=== PATIENT | female | born 1965 | race Caucasian/White ===

== ENCOUNTER 2018-01-29 23:44 | Emergency (ER) | payer BC ==
[2018-01-30] MEDS ORDERED: Morphine 4 MG/ML VIAL ONE (00:24)
[2018-01-30] MEDS ORDERED: Ondansetron PF 4 MG/2 ML Vial ONE (00:37)
[2018-01-30 00:39] LABS: Bilirubin Negative (Negative); Blood, Urine Large (Negative); Clarity CLOUDY (Clear); Glucose, Urine (Dipstick) Negative (Negative); Leukocyte Negative (Negative); Nitrite Negative (Negative); Protein, Urine (Dipstick) 100 mg/dL (Neg-Trace); Specific Gravity, Urine 1.026 (1.002-1.036); Urobilinogen 0.2 mg/dL (0.2-1.0); pH, Urine 5.5 (5.0-9.0)
[2018-01-30 00:42] LABS: Bacteria/HPF Rare-Few HPF (None Seen); Pathc Cast-AUWi Flag 2.47 (0-2.49)
[2018-01-30 00:52] LABS: Hyaline Casts/LPF NONE SEEN LPF (0-3 Hyaline); Renal Epithelial None Seen HPF (0-3); Transitional Epithelial NONE SEEN HPF (0-3)
[2018-01-30 00:56] LABS: #Lymphocytes 0.7 thou/uL (1.20-3.40); #Monocytes 0.3 thou/uL (0.11-0.59); #Neutrophils 6.5 thou/uL (1.40-6.50); %Basophils 0.3 % (0.0-1.0); %Eosinophils 0.1 % (0.0-10.0); %Lymphocytes 8.8 % (21.0-51.0); %Monocytes 3.4 % (0.0-10.0); %Neutrophils 87.4 % (42.0-75.0); Hemoglobin 15.3 g/dL (12.0-16.0); Mean Corpuscular Hemoglobin 30.9 pg (27.0-31.0); Mean Corpuscular Volume 90.8 fL (78.0-98.0); Platelet Count 218 thou/uL (130-400); RBC Distribution Width 11.1 % (11.5-14.5); Red Blood Cell (RBC) Count 4.95 mill/uL (4.20-5.40); White Blood Cell (WBC) Count 7.5 thou/uL (4.8-10.8)
[2018-01-30 01:16] LABS: ALT (SGPT) 10 U/L (8-55); AST (SGOT) 27 U/L (5-34); Albumin 4.5 g/dL (3.5-5.0); Alkaline Phosphatase 55 U/L (40-150); Anion Gap 17 mmol/L (10-20); BUN (Urea Nitrogen) 13 mg/dL (9.8-20.1); Bilirubin, Total 0.8 mg/dL (0.2-1.2); Calc. Creatinine Clearance 0 mL/min (70-130); Calcium 9.8 mg/dL (7.8-10.44); Carbon Dioxide 21 mmol/L (22-29); Chloride 102 mmol/L (98-107); Estimated GFR-MDRD 75; Globulin 3.2 g/dL (2.4-3.5); Glucose 133 mg/dL (70-105); Lipase 8 U/L (8-78); Potassium 4.2 mmol/L (3.5-5.1); Protein, Total 7.7 g/dL (6.0-8.3); Sodium 136 mmol/L (136-145)
--- NOTE | 2018-01-30 09:25 | CT ---
PRELIMINARY REPORT/[facility]/EMERGENTY AFTER-HOURS PROCEDURE CT Abdomen and Pelvis With Intravenous Contrast EXAM DATE/TIME: 01/30/2018 1:49 AM CLINICAL HISTORY: 52 years old, female; Pain; Abdominal pain; Generalized; Patient HX: Iv contrast only per ordering do c; F52 presents to the ed C/O abdominal pain that started today at 12p before eating. PT. Reports jaren n is intermittent. PT. Reports n/v about 1 hour ago stating that it improved her symptoms. PT. Reports having similar symptoms in the past with HX of partial bowel obstructions. PT. Reports having a ruptured appendix surgery and 2 bowel obstruction surgeries TECHNIQUE: Axial computed tomography images of the abdomen and pelvis with intravenous contrast. Coronal reformatted images were created and reviewed. COMPARISON: No relevant prior studies available. FINDINGS: Lower thorax: There is subpleural atelectasis of the dependent portions of the lungs. ABDOMEN: Liver: There is a small region of focal fatty infiltration adjacent to the falciform ligament. Gallbladder and bile ducts: The gallbladder is normal. There is no evidence of biliary ductal dilatio n. Pancreas: The pancreas appears normal. No ductal dilatation. Spleen: The spleen is normal. Adrenals: The adrenal glands are normal. Kidneys and ureters: The kidneys appear normal. No hydronephrosis. Stomach and bowel: The stomach is normal. The duodenum is unremarkable. There is fluid filling the sm all and large bowel with moderate colonic constipation. Appendix: No appendix is specifically identified. PELVIS: Bladder: The bladder is normal. Reproductive: The uterus is normal. ABDOMEN and PELVIS: Intraperitoneal space: There is tracer upper quadrant ascites Bones/joints: No acute fracture. No dislocation. Soft tissues: Unremarkable. Vasculature: Normal. No abdominal aortic aneurysm. Lymph nodes: Normal. No enlarged lymph nodes. IMPRESSION: There is fluid filling the small and large bowel with moderate colonic constipation. Correlate clinic ally for enteritis. Thank you for allowing us to participate in the care of your patient. Dictated and Authenticated by: Myke Tomas MD 01/30/2018 2:05 AM Central Time ([place] & [place]) FINAL REPORT CT ABDOMEN AND PELVIS WITH IV CONTRAST: DATE: 01/30/2018. TIME: Performed on emergency basis at 0152 hours. HISTORY: Abdominal pain. Nausea and vomiting. FINDINGS: Agree with the preliminary report by Dr. Tomas from [facility]. Fluid distends the small bow el with significant fluid throughout the colon. Some decompressed small bowel is apparent within the right mid abdomen. The amount of fluid within the colon, however, argues against a significant obst ruction. An intermittent distal small bowel obstruction could give this appearance. Alternatively, significant enteritis could have this appearance. No evidence of bowel perforation. POS: [facility]
[2018-01-30] MEDS ORDERED: ISOVUE-370 76%-LOCM 1 ML ONE (10:02)
== END 2018-01-30 03:00 | disposition home or self-care (01) ==
LOC: ERS 23:44
DX: K52.9 Noninfective gastroenteritis and colitis, unspecified (principal); K59.00 Constipation, unspecified; R11.2 Nausea with vomiting, unspecified; F32.9 Major depressive disorder, single episode, unspecified; Z79.899 Other long term (current) drug therapy
CPT/HCPCS: 74177; 80053; 81003; 81015; 83605; 83690; 85025; 93005; 96361; 96374; 96375; J2270; J2405

== ENCOUNTER 2020-11-10 05:46 | Day surgery (SDC) | payer BC ==
[2020-11-10] MEDS ORDERED: Fentanyl 100 MCG/2 ML VIAL ONE (06:12)
[2020-11-10] MEDS ORDERED: Lidocaine 2% Jelly 5 ML TUBE ONE (06:13)
[2020-11-10] MEDS ORDERED: Thrombin 5000 UNITS/5 ML VIAL ONE (06:20)
[2020-11-10] MEDS ORDERED: EPINEPHrine 1 MG/ML AMP ONE (06:20)
[2020-11-10] MEDS ORDERED: Bupivacaine PF 0.5% 30 ML VIAL ONE (06:20)
[2020-11-10] MEDS ORDERED: Midazolam HCl 2 mg/2 ml Vial ONE (06:51)
[2020-11-10] MEDS ORDERED: Glycopyrrolate 0.2 MG/ML 5 ML SYRINGE ONE (07:02)
[2020-11-10] MEDS ORDERED: Rocuronium Bromide 10 MG/ML (10ML VIAL) ONE (07:02)
[2020-11-10] MEDS ORDERED: Ondansetron PF 4 MG/2 ML Vial ONE (07:02)
[2020-11-10] MEDS ORDERED: Ketorolac Tromethamine 30 MG/ML VIAL ONE (07:02)
[2020-11-10] MEDS ORDERED: Lidocaine 1% PF 5 ML VIAL ONE (07:02)
[2020-11-10] MEDS ORDERED: PROPOFOL 200 MG/20 ML VIAL ONE (07:02)
[2020-11-10] MEDS ORDERED: Dexamethasone 20 MG/5 ML VIAL ONE (07:02)
[2020-11-10] MEDS ORDERED: HYDROmorphone 0.5 MG/0.5 ML SYRINGE ONE ×3 (08:27→08:49)
[2020-11-10] MEDS ORDERED: Ondansetron ODT 4 MG TAB ONE (13:13)
[2020-11-10] MEDS ORDERED: traMADol HCl 50 MG TAB ONE (14:10)
== END 2020-11-10 15:09 | disposition home or self-care (01) ==
LOC: SDC 05:46
PROVIDERS: ATTEND Neurological Surgery
PROC: 01NB0ZZ Release Lumbar Nerve, Open Approach (ICD-10-PCS; principal; 2020-11-10)
DX: M48.061 Spinal stenosis, lumbar region without neurogenic claudication (principal); M48.07 Spinal stenosis, lumbosacral region; M51.16 Intervertebral disc disorders with radiculopathy, lumbar region; Z88.1 Allergy status to other antibiotic agents; Z88.5 Allergy status to narcotic agent
CPT/HCPCS: 76000; J0171; J0690; J1100; J1170; J1885; J2250; J2405; J2704; J3010; Q0162; S0020